=== PATIENT | female | born 1970 | race Caucasian/White ===

== ENCOUNTER 2018-03-20 11:10 | Inpatient (IN) ==
[2018-03-20 16:24] LABS: Basophils # 0.1 10*3/uL (0.0-0.2); Basophils % 0.5 % (0.0-0.8); Eosinophils # 0.2 10*3/uL (0.0-0.87); Eosinophils % 1.9 % (0.00-10.9); Hematocrit 33.4 VOL% (35.7-47.0); Hemoglobin 10.9 GM/DL (12.0-16.0); Immature Granulocytes % 0.3 %; Immature Granulocytes Absolute 0.03 #; Lymphocytes # 2.9 10*3/uL (1.4-4.0); Lymphocytes % 28.4 % (21.3-54.2); Mean Corpuscular HGB Conc 32.6 GM/DL (32-36); Mean Corpuscular Hemoglobin 28 PG (27-34); Mean Corpuscular Volume 86.8 FL (87-102); Mean Platelet Volume 9.9 FL (9.6-12.0); Monocytes # 0.4 10*3/uL (0.11-0.8); Neutrophils # 6.6 10*3/uL (1.4-7.4); Neutrophils % 64.9 % (38.7-73.9); Platelet Count 471 T/CUMM (130-400); Red Blood Count 3.85 MC/CUMM (3.8-5.5); Red Cell Distribution Width 14.9 % (9.3-17.3); White Blood Count 10.2 T/CUMM (4-12)
[2018-03-20 16:50] LABS: Albumin 2.5 G/DL (3.4-5.0); Bilirubin,Total 0.4 MG/DL (0.2-1.0); Calcium 8.4 MG/DL (8.5-10.1); Osmolality,Calculated 279.3 MOS/KG (273-304); Potassium 3.7 MMOL/L (3.5-5.1); Total Protein 6.3 G/DL (6.4-8.3)
[2018-03-20] MEDS ORDERED: oxyCODONE/ACETAMINOPHEN 5-325 MG TABLET PO SCH ×2 (17:00→21:00)
[2018-03-20] MEDS: oxyCODONE/ACETAMINOPHEN 5-325 MG TABLET PO SCH (17:14)
[2018-03-20] MEDS: MEPERIDINE 50 MG/1 ML VIAL IV PRN ×2 (17:47→22:07)
[2018-03-20] MEDS: rOPINIRole 1 MG TABLET PO SCH (19:19)
[2018-03-20] MEDS: GABAPENTIN 300 MG CAPSULE PO SCH (20:33)
[2018-03-20] MEDS ORDERED: Milnacipran Hcl [Savella] 100 MG PO SCH (21:00)
[2018-03-20 21:47] LABS: Apearance,Urine CLEAR (Clear); Bilirubin,Urine Negative (Negative); Blood, Urine Negative (Negative); Glucose,Urine (UA) Negative (Negative); Ketones,Urine Negative (Negative); Mucus,Urine Occasional /LPF (Occasional); Nitrite,Urine Negative (Negative); Protein,Urine Negative; Squamous Epithelial Cell,Urine Occasional /HPF (0-10); Urine Color Yellow (Yellow); Urine Specific Gravity 1.006 (1.001-1.035); Urine Urobilinogen < 2.0 EU/DL (0.2-1.0); WBC,Urine <1 /HPF (0-6)
[2018-03-20] MEDS: PIPERACILLIN/TAZOBACTAM 3,375 MG in SODIUM CHLORIDE 0.9% 100 ML IV SCH (22:08)
[2018-03-21] MEDS: MEPERIDINE 50 MG/1 ML VIAL IV PRN ×4 (05:26→22:16)
[2018-03-21] MEDS: PIPERACILLIN/TAZOBACTAM 3,375 MG in SODIUM CHLORIDE 0.9% 100 ML IV SCH ×3 (05:28→20:46)
[2018-03-21 05:53] LABS: Basophils % 0.3 % (0.0-0.8); Eosinophils # 0.2 10*3/uL (0.0-0.87); Eosinophils % 2.8 % (0.00-10.9); Hemoglobin 10.9 GM/DL (12.0-16.0); Immature Granulocytes % 0.2 %; Immature Granulocytes Absolute 0.02 #; Lymphocytes # 2.6 10*3/uL (1.4-4.0); Lymphocytes % 29.4 % (21.3-54.2); Mean Corpuscular Hemoglobin 29 PG (27-34); Mean Corpuscular Volume 86.2 FL (87-102); Mean Platelet Volume 10.3 FL (9.6-12.0); Monocytes # 0.7 10*3/uL (0.11-0.8); Monocytes % 7.7 % (1.7-12.7); Neutrophils # 5.2 10*3/uL (1.4-7.4); Neutrophils % 59.6 % (38.7-73.9); Platelet Count 463 T/CUMM (130-400); Red Blood Count 3.83 MC/CUMM (3.8-5.5); Red Cell Distribution Width 15.1 % (9.3-17.3); White Blood Count 8.7 T/CUMM (4-12)
[2018-03-21] MEDS: oxyCODONE/ACETAMINOPHEN 5-325 MG TABLET PO SCH ×2 (06:26→16:28)
[2018-03-21 06:38] LABS: Calcium 8.2 MG/DL (8.5-10.1); Osmolality,Calculated 279.1 MOS/KG (273-304); Potassium 3.7 MMOL/L (3.5-5.1); Risk Ratio 2.12; Thyroid Stimulating Hormone 3.2 uIU/ml (0.358-3.74)
[2018-03-21] MEDS ORDERED: Varenicline Tartrate [Chantix Starter Month Pack] PO SCH (09:00)
[2018-03-21] MEDS: FERROUS SULFATE 325 MG TABLET PO SCH (09:53)
[2018-03-21] MEDS: MULTIVITAMIN (CENTRUM) TABLET PO SCH (09:53)
[2018-03-21] MEDS: CHOLECALCIFEROL 1,000 UNIT TABLET PO SCH (09:53)
[2018-03-21] MEDS: buPROPion XL 150 MG TABLET PO SCH (09:53)
[2018-03-21] MEDS: FOLIC ACID 1 MG TABLET PO SCH (09:53)
[2018-03-21] MEDS: GABAPENTIN 300 MG CAPSULE PO SCH ×2 (09:53→20:46)
[2018-03-21] MEDS: DOCUSATE SODIUM 100 MG CAPSULE PO SCH (09:54)
[2018-03-21] MEDS: TERBINAFINE 250 MG TABLET PO SCH (09:54)
[2018-03-21] MEDS: NICOTINE 21 MG/24 HR PATCH TRANSDERM SCH (10:30)
[2018-03-21] MEDS ORDERED: BISACODYL 5 MG TABLET PO PRN (13:13)
[2018-03-21] MEDS: POLYETHYLENE GLYCOL POWDER 17 GM PACK PO SCH (14:14)
[2018-03-21] MEDS: rOPINIRole 1 MG TABLET PO SCH (18:19)
[2018-03-22] MEDS: PIPERACILLIN/TAZOBACTAM 3,375 MG in SODIUM CHLORIDE 0.9% 100 ML IV SCH ×3 (04:53→21:27)
[2018-03-22] MEDS: oxyCODONE/ACETAMINOPHEN 5-325 MG TABLET PO SCH ×2 (04:53→17:47)
[2018-03-22 05:09] LABS: Basophils # 0.1 10*3/uL (0.0-0.2); Basophils % 0.6 % (0.0-0.8); Eosinophils # 0.3 10*3/uL (0.0-0.87); Eosinophils % 3.2 % (0.00-10.9); Hematocrit 31.5 VOL% (35.7-47.0); Immature Granulocytes % 0.3 %; Immature Granulocytes Absolute 0.03 #; Lymphocytes # 3.8 10*3/uL (1.4-4.0); Lymphocytes % 41.8 % (21.3-54.2); Mean Corpuscular HGB Conc 31.7 GM/DL (32-36); Mean Corpuscular Hemoglobin 28 PG (27-34); Mean Platelet Volume 10.3 FL (9.6-12.0); Monocytes # 0.7 10*3/uL (0.11-0.8); Monocytes % 8.1 % (1.7-12.7); Neutrophils # 4.2 10*3/uL (1.4-7.4); Platelet Count 405 T/CUMM (130-400); Red Blood Count 3.62 MC/CUMM (3.8-5.5); Red Cell Distribution Width 14.7 % (9.3-17.3)
[2018-03-22 05:41] LABS: Calcium 8.2 MG/DL (8.5-10.1); Osmolality,Calculated 277.3 MOS/KG (273-304); Potassium 3.9 MMOL/L (3.5-5.1)
[2018-03-22] MEDS: MEPERIDINE 50 MG/1 ML VIAL IV PRN ×2 (08:39→21:39)
[2018-03-22] MEDS: POLYETHYLENE GLYCOL POWDER 17 GM PACK PO SCH (08:51)
[2018-03-22] MEDS: DOCUSATE SODIUM 100 MG CAPSULE PO SCH (08:51)
[2018-03-22] MEDS: CHOLECALCIFEROL 1,000 UNIT TABLET PO SCH (08:51)
[2018-03-22] MEDS: GABAPENTIN 300 MG CAPSULE PO SCH ×2 (08:53→21:27)
[2018-03-22] MEDS: MULTIVITAMIN (CENTRUM) TABLET PO SCH (08:53)
[2018-03-22] MEDS: buPROPion XL 150 MG TABLET PO SCH (08:53)
[2018-03-22] MEDS: FOLIC ACID 1 MG TABLET PO SCH (08:54)
[2018-03-22] MEDS: FERROUS SULFATE 325 MG TABLET PO SCH (08:54)
[2018-03-22] MEDS: TERBINAFINE 250 MG TABLET PO SCH (08:54)
[2018-03-22] MEDS: NICOTINE 21 MG/24 HR PATCH TRANSDERM SCH ×2 (19:43→21:29)
[2018-03-22] MEDS: rOPINIRole 1 MG TABLET PO SCH (22:50)
[2018-03-23] MEDS: PIPERACILLIN/TAZOBACTAM 3,375 MG in SODIUM CHLORIDE 0.9% 100 ML IV SCH ×2 (04:40→15:09)
[2018-03-23] MEDS: MEPERIDINE 50 MG/1 ML VIAL IV PRN ×2 (04:49→12:25)
[2018-03-23] MEDS: oxyCODONE/ACETAMINOPHEN 5-325 MG TABLET PO SCH (06:01)
[2018-03-23] MEDS: GABAPENTIN 300 MG CAPSULE PO SCH (08:48)
[2018-03-23] MEDS: MULTIVITAMIN (CENTRUM) TABLET PO SCH (08:48)
[2018-03-23] MEDS: FOLIC ACID 1 MG TABLET PO SCH (08:48)
[2018-03-23] MEDS: FERROUS SULFATE 325 MG TABLET PO SCH (08:48)
[2018-03-23] MEDS: TERBINAFINE 250 MG TABLET PO SCH (08:48)
[2018-03-23] MEDS: buPROPion XL 150 MG TABLET PO SCH (08:49)
[2018-03-23] MEDS: CHOLECALCIFEROL 1,000 UNIT TABLET PO SCH (08:49)
[2018-03-23] MEDS: DOCUSATE SODIUM 100 MG CAPSULE PO SCH (08:49)
[2018-03-23] MEDS: POLYETHYLENE GLYCOL POWDER 17 GM PACK PO SCH (08:50)
[2018-03-23] MEDS: NICOTINE 21 MG/24 HR PATCH TRANSDERM SCH (15:08)
[2018-03-23 16:36] VITALS: BP 142/86
== END 2018-03-23 16:23 | disposition home health service (06) | DRG 30 ==
LOC: SUATTDRO 14:01 → N.3E 14:01
PROVIDERS: ADMIT Internal Medicine; ATTEND Internal Medicine

== ENCOUNTER 2018-07-15 13:09 | Inpatient (IN) ==
[2018-07-15 16:22] LABS: Basophils % 0.5 % (0.0-0.8); Eosinophils # 0.2 10*3/uL (0.0-0.87); Eosinophils % 2.2 % (0.00-10.9); Hematocrit 35.8 VOL% (35.7-47.0); Hemoglobin 11.4 GM/DL (12.0-16.0); Immature Granulocytes % 0.3 %; Immature Granulocytes Absolute 0.02 #; Lymphocytes # 4.2 10*3/uL (1.4-4.0); Lymphocytes % 54.2 % (21.3-54.2); Mean Corpuscular HGB Conc 31.8 GM/DL (32-36); Mean Corpuscular Hemoglobin 28 PG (27-34); Mean Corpuscular Volume 87.1 FL (87-102); Mean Platelet Volume 10.1 FL (9.6-12.0); Monocytes # 0.5 10*3/uL (0.11-0.8); Monocytes % 6.9 % (1.7-12.7); Neutrophils # 2.8 10*3/uL (1.4-7.4); Neutrophils % 35.9 % (38.7-73.9); Platelet Count 356 T/CUMM (130-400); Red Blood Count 4.11 MC/CUMM (3.8-5.5); Red Cell Distribution Width 13.8 % (9.3-17.3); White Blood Count 7.7 T/CUMM (4-12)
[2018-07-15] MEDS ORDERED: ACETAMINOPHEN 325 MG TABLET PO PRN (16:29)
[2018-07-15 16:33] LABS: Apearance,Urine CLEAR (Clear); Bacteria,Urine Occasional /HPF (Few); Bilirubin,Urine Negative (Negative); Blood, Urine Negative (Negative); Glucose,Urine (UA) Negative (Negative); Ketones,Urine Negative (Negative); Mucus,Urine Occasional /LPF (Occasional); Nitrite,Urine Negative (Negative); Protein,Urine Negative; RBC,Urine 1 /HPF (0-4); Squamous Epithelial Cell,Urine Occasional /HPF (0-10); Urine Color Yellow (Yellow); Urine Specific Gravity 1.008 (1.001-1.035); Urine Urobilinogen < 2.0 EU/DL (0.2-1.0); WBC,Urine 1 /HPF (0-6)
[2018-07-15 16:42] LABS: Alanine Aminotransferase 13 U/L (13-56); Albumin 3.1 G/DL (3.4-5.0); Alkaline Phosphatase 105 U/L (45-117); Aspartate Amino Transferase 15 U/L (0-37); Bilirubin,Total < 0.39 MG/DL (0.2-1.0); Blood Urea Nitrogen 5 MG/DL (7-18); Calcium 8.3 MG/DL (8.5-10.1); Glucose 94 MG/DL (74-106); Osmolality,Calculated 269.8 MOS/KG (273-304); Potassium 3.6 MMOL/L (3.5-5.1); Sodium 137 MMOL/L (136-145); Total Protein 6.7 G/DL (6.4-8.3)
[2018-07-15 16:47] LABS: Band Neutrophils 1 % (0-10); Lymphocytes 43 % (20-55); Platelet Estimate Adequate; Segmented Neutrophils 44 % (50-85); Total Cells Counted 100
[2018-07-15] MEDS: HYDROmorphone 2 MG/1 ML VIAL IV PRN ×2 (18:45→23:59)
[2018-07-15] MEDS: ONDANSETRON 4 MG/2 ML VIAL IV PRN (18:45)
[2018-07-15] MEDS: VANCOMYCIN INJ 1,250 MG in SODIUM CHLORIDE 0.9% 250 ML IV SCH (18:47)
[2018-07-15] MEDS ORDERED: PERMETHRIN 5% CREAM 60 GM TUBE TOP ONE (21:00)
[2018-07-15] MEDS ORDERED: PERMETHRIN 1% LOTION 59 ML BOTTLE TOP ONE (22:00)
[2018-07-16 05:12] LABS: Basophils % 0.5 % (0.0-0.8); Eosinophils # 0.2 10*3/uL (0.0-0.87); Hematocrit 32.7 VOL% (35.7-47.0); Hemoglobin 10.4 GM/DL (12.0-16.0); Immature Granulocytes % 0.2 %; Immature Granulocytes Absolute 0.01 #; Lymphocytes # 2.7 10*3/uL (1.4-4.0); Lymphocytes % 41.4 % (21.3-54.2); Mean Corpuscular HGB Conc 31.8 GM/DL (32-36); Mean Corpuscular Hemoglobin 28 PG (27-34); Mean Corpuscular Volume 87.2 FL (87-102); Mean Platelet Volume 10.3 FL (9.6-12.0); Monocytes # 0.5 10*3/uL (0.11-0.8); Monocytes % 7.7 % (1.7-12.7); Neutrophils % 47.2 % (38.7-73.9); Platelet Count 330 T/CUMM (130-400); Red Blood Count 3.75 MC/CUMM (3.8-5.5); Red Cell Distribution Width 13.8 % (9.3-17.3); White Blood Count 6.4 T/CUMM (4-12)
[2018-07-16 05:35] LABS: Calcium 8.3 MG/DL (8.5-10.1); Osmolality,Calculated 276.3 MOS/KG (273-304); Potassium 4.2 MMOL/L (3.5-5.1); Risk Ratio 1.75; Thyroid Stimulating Hormone 2.7 uIU/ml (0.358-3.74); VLDL CHOLESTEROL 12.2 MG/DL
[2018-07-16] MEDS: VANCOMYCIN INJ 1,250 MG in SODIUM CHLORIDE 0.9% 250 ML IV SCH ×2 (05:42→17:51)
[2018-07-16] MEDS: HYDROmorphone 2 MG/1 ML VIAL IV PRN ×3 (06:40→21:19)
[2018-07-16] MEDS: ONDANSETRON 4 MG/2 ML VIAL IV PRN (09:55)
[2018-07-16] MEDS: PANTOPRAZOLE 40 MG TABLET PO SCH (09:57)
[2018-07-16] MEDS ORDERED: traMADol 50 MG TABLET PO PRN (11:27)
[2018-07-16] MEDS: MULTIVITAMIN (CENTRUM) TABLET PO SCH (13:11)
[2018-07-16] MEDS: FOLIC ACID 1 MG TABLET PO SCH (13:12)
[2018-07-16] MEDS: buPROPion XL 150 MG TABLET PO SCH (13:12)
[2018-07-16] MEDS: CHOLECALCIFEROL 1,000 UNIT TABLET PO SCH (13:12)
[2018-07-16] MEDS: DOCUSATE SODIUM 100 MG CAPSULE PO SCH (13:12)
[2018-07-16] MEDS: GABAPENTIN 300 MG CAPSULE PO SCH ×2 (13:12→21:24)
[2018-07-16] MEDS: oxyCODONE/ACETAMINOPHEN 5-325 MG TABLET PO PRN (15:29)
[2018-07-16] MEDS ORDERED: Milnacipran Hcl [Savella] 100 MG PO SCH (21:00)
[2018-07-16] MEDS: rOPINIRole 1 MG TABLET PO SCH (21:24)
[2018-07-16] MEDS: traZODone 50 MG TABLET PO SCH (21:24)
[2018-07-17 06:26] LABS: Basophils % 0.5 % (0.0-0.8); Eosinophils # 0.3 10*3/uL (0.0-0.87); Eosinophils % 4.4 % (0.00-10.9); Hematocrit 33.7 VOL% (35.7-47.0); Hemoglobin 10.7 GM/DL (12.0-16.0); Immature Granulocytes % 0.7 %; Immature Granulocytes Absolute 0.04 #; Lymphocytes # 2.5 10*3/uL (1.4-4.0); Lymphocytes % 43.7 % (21.3-54.2); Mean Corpuscular HGB Conc 31.8 GM/DL (32-36); Mean Corpuscular Hemoglobin 27 PG (27-34); Mean Corpuscular Volume 86.4 FL (87-102); Mean Platelet Volume 10.4 FL (9.6-12.0); Monocytes # 0.5 10*3/uL (0.11-0.8); Monocytes % 9.3 % (1.7-12.7); Neutrophils # 2.4 10*3/uL (1.4-7.4); Neutrophils % 41.4 % (38.7-73.9); Platelet Count 331 T/CUMM (130-400); Red Cell Distribution Width 13.8 % (9.3-17.3); White Blood Count 5.7 T/CUMM (4-12)
[2018-07-17 07:01] LABS: Calcium 8.4 MG/DL (8.5-10.1); Osmolality,Calculated 272.5 MOS/KG (273-304); Potassium 3.8 MMOL/L (3.5-5.1)
[2018-07-17] MEDS: VANCOMYCIN INJ 1,250 MG in SODIUM CHLORIDE 0.9% 250 ML IV SCH (07:22)
[2018-07-17] MEDS: PANTOPRAZOLE 40 MG TABLET PO SCH (09:50)
[2018-07-17] MEDS: HYDROmorphone 2 MG/1 ML VIAL IV PRN ×7 (09:52→20:39)
[2018-07-17] MEDS ORDERED: LIDOCAINE 1% 20 ML VIAL ONE (10:18)
[2018-07-17] MEDS ORDERED: VANCOMYCIN 1,000 MG VIAL ONE (10:18)
[2018-07-17] MEDS ORDERED: TISSUE ADHESIVE 1 EACH APPLICATOR TOP ONE (10:58)
[2018-07-17] MEDS ORDERED: HYDROmorphone 2 MG/1 ML VIAL ONE (11:25)
[2018-07-17] MEDS ORDERED: ONDANSETRON 4 MG/2 ML VIAL ONE (11:25)
[2018-07-17] MEDS ORDERED: PROMETHAZINE 25 MG/1 ML VIAL ONE (11:26)
[2018-07-17] MEDS ORDERED: PROPOFOL 200 MG/20 ML VIAL IV ONE (11:31)
[2018-07-17] MEDS ORDERED: MIDAZOLAM 2 MG/2 ML VIAL ONE (11:31)
[2018-07-17] MEDS ORDERED: fentaNYL 100 MCG/2 ML VIAL ONE (11:31)
[2018-07-17] MEDS ORDERED: KETAMINE 500 MG/10 ML VIAL ONE (11:33)
[2018-07-17] MEDS ORDERED: MEPERIDINE 25 MG/1 ML VIAL ONE (11:52)
[2018-07-17] MEDS ORDERED: PROMETHAZINE INJ 25 MG in SODIUM CHLORIDE 0.9% 50 ML IV PRN (11:55)
[2018-07-17] MEDS ORDERED: ONDANSETRON 4 MG/2 ML VIAL IV PRN (11:55)
[2018-07-17] MEDS ORDERED: MEPERIDINE 25 MG/1 ML VIAL IV PRN (11:55)
[2018-07-17] MEDS ORDERED: LACTATED RINGERS 1,000 ML IV SCH (12:00)
[2018-07-17] MEDS: VANCOMYCIN INJ 1,000 MG in SODIUM CHLORIDE 0.9% 250 ML IV SCH ×2 (14:57→21:03)
[2018-07-17] MEDS: ONDANSETRON 4 MG/2 ML VIAL IV PRN (17:17)
[2018-07-17] MEDS: buPROPion XL 150 MG TABLET PO SCH (19:51)
[2018-07-17] MEDS: FOLIC ACID 1 MG TABLET PO SCH (19:51)
[2018-07-17] MEDS: CHOLECALCIFEROL 1,000 UNIT TABLET PO SCH (19:51)
[2018-07-17] MEDS: GABAPENTIN 300 MG CAPSULE PO SCH ×2 (19:51→20:56)
[2018-07-17] MEDS: DOCUSATE SODIUM 100 MG CAPSULE PO SCH (19:52)
[2018-07-17] MEDS: MULTIVITAMIN (CENTRUM) TABLET PO SCH (19:52)
[2018-07-17] MEDS: traZODone 50 MG TABLET PO SCH (20:50)
[2018-07-17] MEDS: rOPINIRole 1 MG TABLET PO SCH (20:56)
[2018-07-18] MEDS: oxyCODONE/ACETAMINOPHEN 5-325 MG TABLET PO PRN (04:14)
[2018-07-18 05:48] LABS: Basophils % 0.5 % (0.0-0.8); Eosinophils # 0.3 10*3/uL (0.0-0.87); Eosinophils % 3.7 % (0.00-10.9); Hematocrit 31.7 VOL% (35.7-47.0); Hemoglobin 10.3 GM/DL (12.0-16.0); Immature Granulocytes % 0.2 %; Immature Granulocytes Absolute 0.02 #; Lymphocytes # 2.8 10*3/uL (1.4-4.0); Lymphocytes % 35.1 % (21.3-54.2); Mean Corpuscular HGB Conc 32.5 GM/DL (32-36); Mean Corpuscular Hemoglobin 28 PG (27-34); Mean Corpuscular Volume 87.3 FL (87-102); Mean Platelet Volume 10.7 FL (9.6-12.0); Monocytes # 0.6 10*3/uL (0.11-0.8); Monocytes % 7.4 % (1.7-12.7); Neutrophils # 4.3 10*3/uL (1.4-7.4); Neutrophils % 53.1 % (38.7-73.9); Platelet Count 330 T/CUMM (130-400); Red Blood Count 3.63 MC/CUMM (3.8-5.5); Red Cell Distribution Width 13.8 % (9.3-17.3); White Blood Count 8.1 T/CUMM (4-12)
[2018-07-18 06:01] LABS: Osmolality,Calculated 278.3 MOS/KG (273-304); Potassium 3.6 MMOL/L (3.5-5.1)
[2018-07-18] MEDS: VANCOMYCIN INJ 1,000 MG in SODIUM CHLORIDE 0.9% 250 ML IV SCH ×2 (06:10→14:29)
[2018-07-18] MEDS: HYDROmorphone 2 MG/1 ML VIAL IV PRN ×2 (08:00→12:31)
[2018-07-18] MEDS: PANTOPRAZOLE 40 MG TABLET PO SCH (09:26)
[2018-07-18] MEDS: GABAPENTIN 300 MG CAPSULE PO SCH (09:27)
[2018-07-18] MEDS: FOLIC ACID 1 MG TABLET PO SCH (09:27)
[2018-07-18] MEDS: CHOLECALCIFEROL 1,000 UNIT TABLET PO SCH (09:27)
[2018-07-18] MEDS: DOCUSATE SODIUM 100 MG CAPSULE PO SCH (09:27)
[2018-07-18] MEDS: buPROPion XL 150 MG TABLET PO SCH (09:28)
[2018-07-18] MEDS: MULTIVITAMIN (CENTRUM) TABLET PO SCH (09:28)
[2018-07-18 10:43] VITALS: BP 121/82
== END 2018-07-18 17:00 | disposition home or self-care (01) | DRG 30 ==
LOC: N.ED 13:09 → N.EDINP 16:28 → SUATTDRO 16:28 → N.EDINP 19:29 → N.3E 20:11
PROVIDERS: ADMIT Internal Medicine; ATTEND Internal Medicine Cardiovascular Disease